=== PATIENT | male | born 2000 | race Caucasian/White ===

== ENCOUNTER 2021-10-20 04:01 | Inpatient (IN) ==
--- NOTE | 2021-10-20 04:30 | Emergency Department Note ---
Impression & Plan Suicidal overdose ADMIT ED Provider Note HPI: The patient is a 21-year-old male with history of anxiety/depression, presents the emergency department the chief complaint of suicidal ideations and attempted suicide. Patient was reportedly drinking alcohol earlier this evening which he does admit to, he states he took 5 to 6 separate 10 mg tablets of Lexapro. Patient reportedly did this at some point around 3 AM according to text messages from a friend. On arrival to the ED the patient admits to alcohol use today. He is cooperative however he tells me he does not want to speak about what happened today. He does tell me that he did take 5-6 Lexapro tablets and drank a large amount alcohol. States he was feeling very "upset". Patient states this was an attempt to kill himself. He is otherwise nonaggressive on arrival, he is alert, he is hemodynamically stable, smells of alcohol but otherwise in no acute distress. ROS: -General: Alcohol intoxication -Psychiatric: Suicidal ideations, suicide attempt via drug ingestion *10 point review systems was conducted and is otherwise negative unless stated above *Outpatient medications and allergy history reviewed PE: General: Alert, intoxicated HEENT: Normocephalic, atraumatic, trachea midline Eyes: Extraocular eye movement is intact, no scleral erythema Pulmonary: Clear to auscultation bilaterally, no wheezing Cardio: Regular rate and rhythm GI: Abdomen is soft, nontender : No suprapubic tenderness MSK: No evidence of trauma or malformation of the extremities, no edema Skin: No evidence of rash Neuro: Alert, no focal deficits Psychiatric: Not aggressive but minimally cooperative with history cloth desizing range tender: - An order was placed for continuous cardiac monitoring - Patient was noted to be in sinus rhythm with rate of 74 EKG: Rate: 71 Rhythm: Normal sinus rhythm Intervals: Within normal limits ST changes: No ST elevation Time: 0409 Medical Decision Making: Patient presents the emergency department under 302 by friends over concern for suicidal behavior. Patient does admit to drinking alcohol and taking Lexapro tablets earlier today in an attempt to kill himself. He states he was feeling very upset and anxious although he does not want to expand on this at this time. His alcohol level does return at 266, the remainder of his lab work is otherwise largely unremarkable. He will require repeat evaluation by case management when he is sober. Repeat alcohol level will be placed. I did discuss case with poison control, recommended continued observation on t elemetry, patient will be cleared from the standpoint of Lexapro after 8 hours from his initial ingestion which would place him for medical clearance around 11 AM. He will require reevaluation, suspect given his suicide attempt that 302 will require to be upheld. Patient was signed out to my colleague, Dr. Boateng, pending repeat evaluation by case management, anticipate admission under 302. * Diagnosis: Suicide attempt, alcohol intoxication, SSRI medication overdose * Disposition: Handoff Toy Urena DO Emergency Medicine Past Med/Surg History Medical History No significant past medical history Surgical History No significant past surgical history Social History Smoking Status: Unknown if ever smoked Preferred Language: Polish marital status: Single current occupational status: student Feels Safe at Home: Hesitant to Answer Allergies Allergies Allergy/AdvReac Type Severity Reaction Status Date / Time No Known Allergies Allergy Unverified 01/16/20 13:42 Results & Data (ED) Vital Signs Vital Signs - 24 hr 10/20/21 03:53 10/20/21 04:29 10/20/21 05:00 Temperature 36.8 C Temperature Source Oral Pulse Rate 68 Pulse Rate [Right Finger] 74 79 Pulse Rate from SpO2 Sensor Pulse Rhythm [Right Finger] Regular Pulse Strength [Right Finger] Normal Respiratory Rate 16 16 18 Respiratory Effort / Characteristics Non-Labored Spontaneous Non-Labored Spontaneous Non-Labored Spontaneous Respiratory Depth Normal Normal Normal Respiratory Pattern Regular Regular Blood Pressure 119/75 Blood Pressure [Right Arm] 119/75 115/64 Blood Pressure Mean 89 Blood Pressure Mean [Right Arm] 89 81 Blood Pressure Position Lying Pulse Oximetry 96 92 94 Oxygen Delivery Method Room Air Room Air Sepsis Recent Fever Within 48 Hours No Sepsis New/Unexplained Change in Mental Status No Sepsis Action Taken by Nursing No Action Required 10/20/21 05:16 10/20/21 05:20 10/20/21 05:30 Temperature Temperature Source Pulse Rate 76 75 79 Pulse Rate [Right Finger] Pulse Rate from SpO2 Sensor Pulse Rhythm [Right Finger] Pulse Strength [Right Finger] Respiratory Rate 15 15 15 Respiratory Effort / Characteristics Respiratory Depth Respiratory Pattern Blood Pressure 115/64 Blood Pressure [Right Arm] Blood Pressure Mean 81 Blood Pressure Mean [Right Arm] Blood Pressure Position Pulse Oximetry Oxygen Delivery Method Sepsis Recent Fever Within 48 Hours Sepsis New/Unexplained Change in Mental Status Sepsis Action Taken by Nursing 10/20/21 05:40 10/20/21 05:50 10/20/21 06:00 Temperature Temperature Source Pulse Rate 76 78 70 Pulse Rate [Right Finger] Pulse Rate from SpO2 Sensor Pulse Rhythm [Right Finger] Pulse Strength [Right Finger] Respiratory Rate 16 16 14 Respiratory Effort / Characteristics Respiratory Depth Respiratory Pattern Blood Pressure 107/55 L Blood Pressure [Right Arm] Blood Pressure Mean 72 Blood Pressure Mean [Right Arm] Blood Pressure Position Pulse Oximetry Oxygen Delivery Method Sepsis Recent Fever Within 48 Hours Sepsis New/Unexplained Change in Mental Status Sepsis Action Taken by Nursing 10/20/21 06:10 10/20/21 06:20 10/20/21 06:30 Temperature Temperature Source Pulse Rate 68 66 92 H Pulse Rate [Right Finger] Pulse Rate from SpO2 Sensor Pulse Rhythm [Right Finger] Pulse Strength [Right Finger] Respiratory Rate 14 16 15 Respiratory Effort / Characteristics Respiratory Depth Respiratory Pattern Blood Pressure 79/57 L Blood Pressure [Right Arm] Blood Pressure Mean 64 Blood Pressure Mean [Right Arm] Blood Pressure Position Pulse Oximetry Oxygen Delivery Method Sepsis Recent Fever Within 48 Hours Sepsis New/Unexplained Change in Mental Status Sepsis Action Taken by Nursing 10/20/21 06:40 Temperature Temperature Source Pulse Rate 71 Pulse Rate [Right Finger] Pulse Rate from SpO2 Sensor 71 Pulse Rhythm [Right Finger] Pulse Strength [Right Finger] Respiratory Rate 15 Respiratory Effort / Characteristics Respiratory Depth Respiratory Pattern Blood Pressure 112/70 Blood Pressure [Right Arm] Blood Pressure Mean 84 Blood Pressure Mean [Right Arm] Blood Pressure Position Pulse Oximetry 95 Oxygen Delivery Method Sepsis Recent Fever Within 48 Hours Sepsis New/Unexplained Change in Mental Status Sepsis Action Taken by Nursing Laboratory Data Result diagrams: 10/20/21 04:33 10/20/21 04:33 Lab Results 10/20/21 10/20/21 10/20/21 Range/Units 04:07 04:33 04:33 WBC 8.42 (4.8-10.8) K/uL RBC 4.98 (4.7-6.1) M/uL Hgb 15.9 (14.0-18.0) g/dL Hct 44.9 (42-52) % MCV 90.2 (80-100) fL MCH 31.9 (25-34) pg MCHC 35.4 (32-36) g/dL RDW Std Deviation 42.9 (36.4-46.3) fL RDW Coeff of Janna 13.0 (11.5-14.5) % Plt Count 256 (130-400) K/uL MPV 9.9 (7.4-10.4) fL Immature Gran % (Auto) 0.1 % Neut % (Auto) 64.1 % Lymph % (Auto) 27.3 % Beaver % (Auto) 5.9 % Eos % (Auto) 2.1 % Baso % (Auto) 0.5 % Neut # (Auto) 5.39 (1.4-6.5) K/uL Lymph # (Auto) 2.30 (1.2-3.4) K/uL Beaver # (Auto) 0.50 (0.11-0.59) K/uL Eos # (Auto) 0.18 (0-0.5) K/uL Baso # (Auto) 0.04 (0-0.2) K/uL Immature Gran # (Auto) 0.01 (0.00-0.02) K/uL Sodium 142 (136-145) mmol/L Potassium 3.5 (3.5-5.1) mmol/L Chloride 110 H (98-107) mmol/L Carbon Dioxide 28 (21-32) mmol/L Anion Gap 4.0 (3-11) BUN 14 (7-18) mg/dl Creatinine 1.12 (0.6-1.4) mg/dl Est Cr Clr Drug Dosing 101.2 ml/min Est GFR ( Amer) 109.0 ml/min Est GFR (Non-Af Amer) 94.1 ml/min BUN/Creatinine Ratio 12.6 (10-20) Glucose 87 (70-99) mg/dl Calcium 9.0 (8.5-10.1) mg/dl Total Bilirubin 0.5 (0.2-1) mg/dl AST 16 (15-37) U/L ALT 33 (12-78) Alkaline Phosphatase 73 (45-117) U/L Total Protein 7.5 (6.4-8.2) gm/dl Albumin 4.2 (3.4-5.0) gm/dl Globulin 3.3 (2.5-4.0) gm/dl Albumin/Globulin Ratio 1.3 (0.9-2) TSH 3.380 (0.300-4.500) uIu/ml Urine Color Urine Appearance (Clear) Urine pH (4.5-7.5) Ur Specific Montalba (1.000-1.030) Urine Protein (Negative) Urine Glucose (UA) (Negative) Urine Ketones (Negative) Urine Blood (Negative) Urine Nitrite (Negative) Urine Bilirubin (Negative) Urine Urobilinogen (Negative) Ur Leukocyte Esterase (Negative) Salicylates (2.8-20) mg/dl Urine Opiates Screen (Neg) Ur Methadone, Qual (Neg) Acetaminophen (10-30) ug/ml Urine Barbiturates (Neg) Ur Phencyclidine (PCP) (Neg) U Amphetamin/Meth Scrn (Neg) MDMA (Ecstasy) Screen (Neg) U Benzodiazepines Scrn (Neg) Ur Cocaine Metabolite (Neg) U Marijuana (THC) Screen (Neg) Ethyl Alcohol mg/dL (0-3) mg/dl SARS-CoV-2, RNA, NAAT NEGATIVE (NEGATIVE) 10/20/21 10/20/21 10/20/21 Range/Units 04:33 04:33 Unknown WBC (4.8-10.8) K/uL RBC (4.7-6.1) M/uL Hgb (14.0-18.0) g/dL Hct (42-52) % MCV (80-100) fL MCH (25-34) pg MCHC (32-36) g/dL RDW Std Deviation (36.4-46.3) fL RDW Coeff of Janna (11.5-14.5) % Plt Count (130-400) K/uL MPV (7.4-10.4) fL Immature Gran % (Auto) % Neut % (Auto) % Lymph % (Auto) % Beaver % (Auto) % Eos % (Auto) % Baso % (Auto) % Neut # (Auto) (1.4-6.5) K/uL Lymph # (Auto) (1.2-3.4) K/uL Beaver # (Auto) (0.11-0.59) K/uL Eos # (Auto) (0-0.5) K/uL Baso # (Auto) (0-0.2) K/uL Immature Gran # (Auto) (0.00-0.02) K/uL Sodium (136-145) mmol/L Potassium (3.5-5.1) mmol/L Chloride (98-107) mmol/L Carbon Dioxide (21-32) mmol/L Anion Gap (3-11) BUN (7-18) mg/dl Creatinine (0.6-1.4) mg/dl Est Cr Clr Drug Dosing ml/min Est GFR ( Amer) ml/min Est GFR (Non-Af Amer) ml/min BUN/Creatinine Ratio (10-20) Glucose (70-99) mg/dl Calcium (8.5-10.1) mg/dl Total Bilirubin (0.2-1) mg/dl AST (15-37) U/L ALT (12-78) Alkaline Phosphatase (45-117) U/L Total Protein (6.4-8.2) gm/dl Albumin (3.4-5.0) gm/dl Globulin (2.5-4.0) gm/dl Albumin/Globulin Ratio (0.9-2) TSH (0.300-4.500) uIu/ml Urine Color Yellow Urine Appearance Clear (Clear) Urine pH 6.0 (4.5-7.5) Ur Specific Montalba 1.004 (1.000-1.030) Urine Protein Negative (Negative) Urine Glucose (UA) Negative (Negative) Urine Ketones Negative (Negative) Urine Blood Negative (Negative) Urine Nitrite Negative (Negative) Urine Bilirubin Negative (Negative) Urine Urobilinogen Negative (Negative) Ur Leukocyte Esterase Negative (Negative) Salicylates < 1.7 L (2.8-20) mg/dl Urine Opiates Screen (Neg) Ur Methadone, Qual (Neg) Acetaminophen < 2 L (10-30) ug/ml Urine Barbiturates (Neg) Ur Phencyclidine (PCP) (Neg) U Amphetamin/Meth Scrn (Neg) MDMA (Ecstasy) Screen (Neg) U Benzodiazepines Scrn (Neg) Ur Cocaine Metabolite (Neg) U Marijuana (THC) Screen (Neg) Ethyl Alcohol mg/dL 266.0 H (0-3) mg/dl SARS-CoV-2, RNA, NAAT (NEGATIVE) 10/20/21 Range/Units Unknown WBC (4.8-10.8) K/uL RBC (4.7-6.1) M/uL Hgb (14.0-18.0) g/dL Hct (42-52) % MCV (80-100) fL MCH (25-34) pg MCHC (32-36) g/dL RDW Std Deviation (36.4-46.3) fL RDW Coeff of Janna (11.5-14.5) % Plt Count (130-400) K/uL MPV (7.4-10.4) fL Immature Gran % (Auto) % Neut % (Auto) % Lymph % (Auto) % Beaver % (Auto) % Eos % (Auto) % Baso % (Auto) % Neut # (Auto) (1.4-6.5) K/uL Lymph # (Auto) (1.2-3.4) K/uL Beaver # (Auto) (0.11-0.59) K/uL Eos # (Auto) (0-0.5) K/uL Baso # (Auto) (0-0.2) K/uL Immature Gran # (Auto) (0.00-0.02) K/uL Sodium (136-145) mmol/L Potassium (3.5-5.1) mmol/L Chloride (98-107) mmol/L Carbon Dioxide (21-32) mmol/L Anion Gap (3-11) BUN (7-18) mg/dl Creatinine (0.6-1.4) mg/dl Est Cr Clr Drug Dosing ml/min Est GFR ( Amer) ml/min Est GFR (Non-Af Amer) ml/min BUN/Creatinine Ratio (10-20) Glucose (70-99) mg/dl Calcium (8.5-10.1) mg/dl Total Bilirubin (0.2-1) mg/dl AST (15-37) U/L ALT (12-78) Alkaline Phosphatase (45-117) U/L Total Protein (6.4-8.2) gm/dl Albumin (3.4-5.0) gm/dl Globulin (2.5-4.0) gm/dl Albumin/Globulin Ratio (0.9-2) TSH (0.300-4.500) uIu/ml Urine Color Urine Appearance (Clear) Urine pH (4.5-7.5) Ur Specific Mont[place] (1.000-1.030) Urine Protein (Negative) Urine Glucose (UA) (Negative) Urine Ketones (Negative) Urine Blood (Negative) Urine Nitrite (Negative) Urine Bilirubin (Negative) Urine Urobilinogen (Negative) Ur Leukocyte Esterase (Negative) Salicylates (2.8-20) mg/dl Urine Opiates Screen Neg (Neg) Ur Methadone, Qual Neg (Neg) Acetaminophen (10-30) ug/ml Urine Barbiturates Neg (Neg) Ur Phencyclidine (PCP) Neg (Neg) U Amphetamin/Meth Scrn Neg (Neg) MDMA (Ecstasy) Screen Neg (Neg) U Benzodiazepines Scrn Neg (Neg) Ur Cocaine Metabolite Neg (Neg) U Marijuana (THC) Screen Neg (Neg) Ethyl Alcohol mg/dL (0-3) mg/dl SARS-CoV-2, RNA, NAAT (NEGATIVE) Discharge Plan Visit Data Chief Complaint: Mental Health Evaluation Stated Complaint: MENTAL HEALTH ED Provider: Toy Urena Discharge Problem: Suicidal overdose Forms Stand Alone Forms: [facility], Suicide Prevention Resources Referrals Referrals: [facility] [Primary Care Provider] - Discharge Problem: Suicidal overdose Qualifiers: Encounter type: initial encounter Qualified Code(s): T50.902A - Poisoning by un specified drugs, medicaments and biological substances, intentional self-harm, initial encounter
[2021-10-20 04:45] LABS: Appearance Urine Clear (Clear); Bilirubin Urine Negative (Negative); Blood Urine Negative (Negative); Color Urine Yellow; Glucose Urine UA Negative (Negative); Ketones Urine Negative (Negative); Leukocyte Esterase Urine Negative (Negative); Nitrite Urine Negative (Negative); Protein Urine Negative (Negative); Specific Gravity Urine 1.004 (1.000-1.030); Urobilinogen Urine Negative (Negative)
[2021-10-20 04:52] LABS: Basophils # (auto) 0.04 K/uL (0-0.2); Basophils % (auto) 0.5 %; Eosinophils # (auto) 0.18 K/uL (0-0.5); Eosinophils % (auto) 2.1 %; Hematocrit (blood only) 44.9 % (42-52); Hemoglobin 15.9 g/dL (14.0-18.0); Immature Granulocytes # (auto) 0.01 K/uL (0.00-0.02); Immature Granulocytes % (auto) 0.1 %; Lymphocytes % (auto) 27.3 %; Mean Corpuscular Hemoglobin 31.9 pg (25-34); Mean Corpuscular Hgb Conc 35.4 g/dL (32-36); Mean Corpuscular Volume 90.2 fL (80-100); Mean Platelet Volume 9.9 fL (7.4-10.4); Monocytes % (auto) 5.9 %; Neutrophils # (auto) 5.39 K/uL (1.4-6.5); Neutrophils % (auto) 64.1 %; Platelet Count 256 K/uL (130-400); RDW Standard Deviation 42.9 fL (36.4-46.3); Red Blood Count 4.98 M/uL (4.7-6.1); White Blood Count 8.42 K/uL (4.8-10.8)
[2021-10-20 05:11] LABS: Albumin Level 4.2 gm/dl (3.4-5.0); BUN Creatinine Ratio 12.6 (10-20); Creatinine Clr Calc Pharmacy 101.2 ml/min; Est GFR (Non-African American) 94.1 ml/min; Potassium 3.5 mmol/L (3.5-5.1)
[2021-10-20 05:13] LABS: Amphetamines+Metham, Urine Neg (Neg); Barbiturates, Urine Neg (Neg); Benzodiazepine, Urine Neg (Neg); Cocaine, Urine Neg (Neg); MDMA (Ecstacy), Urine Neg (Neg); Methadone, Urine Neg (Neg); Opiate, Urine Neg (Neg); Phencyclidine, Urine Neg (Neg)
[2021-10-20 05:21] LABS: Albumin Globulin Ratio 1.3 (0.9-2); Bilirubin,Total 0.5 mg/dl (0.2-1); Globulin 3.3 gm/dl (2.5-4.0); Thyroid Stimulating Hormone 3.38 uIu/ml (0.300-4.500); Total Protein 7.5 gm/dl (6.4-8.2)
[2021-10-20 05:31] LABS: Acetaminophen < 2 ug/ml (10-30); Salicylate < 1.7 mg/dl (2.8-20)
--- NOTE | 2021-10-20 08:27 | Emergency Department Note ---
ED Visit Note I assumed care at the change of shift. The patient had threatened suicide and had apparently taken some pills in overdose. He also has been drinking alcohol. Psychiatric case management was going to do an assessment once his alcohol level was felt to be under 100. The patient's alcohol cleared and he was more interactive and appeared clinical ly sober. He was seen by psychiatry case management. Patient admitted to taking pills in an attempt to harm himself. Patient is going to require a hospital stay. Psychiatric case management is cur rently working on bed placement. Case is being assumed by Dr. Wilson at the change of shift. . : Suicidal overdose Qualifiers: Encounter type: initial encounter Qualified Code(s): T50.902A - Poisoning by unspecified drugs, medicaments and biological substances, intentional self-harm, initial encounter
--- NOTE | 2021-10-20 12:24 | Electrocardiogram Report ---
Test Reason : Blood Pressure : / mmHG Vent. Rate : 071 BPM Atrial Rate : 071 BPM P-R Int : 154 ms QRS Dur : 098 ms QT Int : 374 ms P-R-T Axes : 044 060 057 degrees QTc Int : 406 ms Normal sinus rhythm Incomplete right bundle branch block Borderline ECG No previous ECGs available Confirmed by Tevin Lee ([id number]) on 10/20/2021 12:23:39 PM Referred By: REFERRED SELF Confirmed By:Tevin Lee
--- NOTE | 2021-10-20 15:43 | Emergency Department Note ---
ED Visit Note 1542: Signout from Dr. Boateng. 21-year-old male intoxicated making suicidal remarks. 302 signed. Awaiting psychiatric placement. Medically cleared. 1743: Patient accepted to 3 S. . : Suicidal overdose Qualifiers: Encounter type: initial encounter Qualified Code(s): T50.902A - Poisoning by unspecified drugs, medicaments and biological substances, intentional self-harm, initial encounter
[2021-10-20] MEDS ORDERED: ACETAMINOPHEN 325 MG TAB PO PRN (17:33)
[2021-10-20] MEDS ORDERED: BISMUTH SUBSALICYLATE LIQD 236 ML PO PRN (17:33)
[2021-10-20] MEDS ORDERED: SODIUM CHLORIDE 0.65% NA SOLN 45 ML (OCEAN) PRN (17:33)
[2021-10-20] MEDS ORDERED: MAGNESIUM HYDROXIDE SUSP 30 ML UDC PO PRN (17:33)
[2021-10-20] MEDS ORDERED: hydrOXYzine HCl 25 MG TAB PO PRN (17:33)
[2021-10-20] MEDS ORDERED: ALUMINUM/MAGNESIUM SUSP 30 ML UDC PO PRN (17:33)
[2021-10-20] MEDS: hydrOXYzine HCl 25 MG TAB PO PRN (22:32)
--- NOTE | 2021-10-21 09:26 | History & Physical ---
Date of Service October 21, 2021 Impression / Recommendations Impression 21 yo male with worsening of baseline anxiety during COVID and family stressors notes worsening depression this semester culminating in an OD attempt while intoxicated. He states it was unplanned and regrets his actions, mainly due to upset to family and embarrassment. (1) Major depressive disorder with single episode: (2) Generalized anxiety disorder: The patient was admitted to the [facility] ([facility] mental [facility] unit) on q15 min checks (behavioral with suicide precautions) for safety. The patient will participate in group, recreational, and milieu therapies and will be offered additional individual and family sessions as clinically appropriate. Will review restart of SSRI or additional options in the am. Holding meds today due to recent OD and need to adjust to unit milieu. Risk Factors Assessment Do You Have Access To A Gun?: No Protective Factors Assessment Employed: No Psychiatric History Identifying Data ERNESTO HANSEN is a 21-year-old , [employer] from [place], has some history of depression/anxiety, and was admitted on 10/20/21 17:33 on a 201 voluntary commitment for a suicide attempt. 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 The patient admitted to taking 6-7 Lexapro as an attempt to harm himself while intoxicated. ISABELL 236 but continued to express SI when sober. He noted stressors of parents divorce and a break up with a girlfriend on top of stressors related to COVID. He feels Lexapro has generally been a helpful medication for his generalized anxiety, "it takes the edge off" but that this semester has been tough. He states overall he is doing OK in classes but upper level coursework is more challenging and that his energy and motivation had not been as good in the am. He feels like it's harder for him to get up since starting Zoloft. He denies a specific triggering event on the night of the OD but states that he had been having thoughts on and off "for while". He regrets the OD, states he is looking forward to finishing his classes and going home for break. He does worry that telling his parents could cause his mom to have an Etoh relapse. She was in rehab 7-8 months ago. Past Psychiatric History Previous Psych History: med management with a PA at home. Current Psychiatric Diagnosis: Depression Outpatient Services: no therapist Previous Psych Admissions: none Do You Have Access To A Gun?: No History of Previous Suicide Attempt: No Past Medication Trials: denied buspirone Allergies Allergy/AdvReac Type Severity Reaction Status Date / Time No Known Allergies Allergy Unverified 01/16/20 13:42 Home Medications Medication Instructions Recorded Confirmed Type escitalopram oxalate 10 mg tablet 10 mg PO DAILY 10/21/21 10/21/21 History finasteride 1 mg tablet 1 mg PO DAILY 10/21/21 10/21/21 History Family History Family History of: Alcoholism/Drug Abuse (mother) and Doesn't Know Alcohol History Hx of Alcohol Use Over the Past 12 Months: Yes (2-3 times per week) AUDIT Total Score: 4 Smoking Use Have You Smoked or Used Tobacco Products in the Last 30 Days: No Smoking Status: Never smoker Substance History Hx of Prescription Med Misuse Over the Past 12 Months: No Hx of Over the Counter Med Misuse Over the Past 12 Months: No Hx of Inhalent Misuse Over the Past 12 Months: No Hx of Organic Substance Use Over the Past 12 Months: Yes (marijuana occasionally) Hx of Illegal Substances/Street Drug Use Over Past 12 Months: No Problems as a Result of Past Substance Use: None Identified Personal History Living Arrangements: fraternity Highest Grade Completed: Some College (omid in Real Estate Risk Management) 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) Marital Status: Single Number Of Children: 0 Beliefs That Will Affect Care: None Current Legal Problems: No Hx Traumatic Life Events: No Patient History Medical History No significant past medical history Surgical History No significant past surgical history Social History Smoking Status: Never smoker Preferred Language: Welsh Communication Ability: Effective 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 Beliefs That Will Affect Care: None marital status: Single current occupational status: student Feels Safe at Home: Hesitant to Answer Assistive Devices: None Review of Systems Review of Systems: All systems reviewed & are unremarkable except as noted in HPI & below Physical Exam Psychiatric: Orientation: alert and oriented x 3 Apperance: appropriately dressed and appropriately groomed Eye Contact: good eye contact Motor Behavior: no abnormal motor movements Speech: normal rate/rhythm/volume of speech Affect: + depressed affect Mood: + depressed mood Thought Process: goal directed thought process Thought Content: reality based without delusions Suicidal Thoughts: denies suicidal plan and denies suicidal intent; + reports suicidal thoughts (passive) Homicidal Thoughts: denies homicidal thoughts Hallucinations: no auditory hallucinations and no visual hallucinations Cognition: attention grossly intact and language grossly intact Estimated Intelligence: consistent with education level Insight: + limited insight Judgement: + limited judgement Vital Signs (Past 24 Hours): Last Vital Signs Temp 36.6 C 10/21/21 06:37 Pulse 53 L 10/21/21 06:38 Resp 16 10/21/21 06:37 BP 120/79 10/21/21 06:38 Pulse Ox 97 10/20/21 13:00 Exam Statement: A physical exam was performed in the ED by Dr. Urena for the purposes of medical clearance. I accept that physical as correct and adequate for the purposes of the inpatient physical exam. Results & Data ([facility]) Laboratory Results Laboratory Results - last 24 hr 10/20/21 10:48 Ethyl Alcohol mg/dL 122.0 H labs were reviewed including CBC with dif, BUN/Cr, lytes, LFTs, UA, TSH and were within normal limits. UDS was negative. Initial EToh level 266, COVID neg. Current Inpatient Medications Current Inpatient Medications: Current Inpatient Medications Acetaminophen (Acetaminophen 325 Mg Tab) 650 mg PO Q4H PRN PRN Reason: Headache or Minor Fever Stop: 11/19/21 17:32 Al Hydrox/Mg Hydrox/Simethicone (Aluminum/Magnesium Susp 30 Ml Udc) 30 ml PO Q4H PRN PRN Reason: GI Upset Stop: 11/19/21 17:32 Bismuth Subsalicylate (Bismuth Subsalicylate Liqd 236 Ml) 15 ml PO PRN PRN PRN Reason: Loose Stool Stop: 11/19/21 17:32 Hydroxyzine HCl (Hydroxyzine Hcl 25 Mg Tab) 50 mg PO HSZ PRN PRN Reason: Insomnia Stop: 11/19/21 17:32 Last Admin: 10/20/21 22:32 Dose: 50 mg Documented by: Hydroxyzine HCl (Hydroxyzine Hcl 25 Mg Tab) 25 mg PO Q4H PRN PRN Reason: Anxiety Stop: 11/19/21 17:32 Magnesium Hydroxide (Magnesium Hydroxide Susp 30 Ml Udc) 30 ml PO DAILY PRN PRN Reason: Constipation Stop: 11/19/21 17:32 Sodium Chloride (Sodium Chloride 0.65% Na Soln 45 Ml (Waller)) 1 - 2 sprays NA PRN PRN PRN Reason: Nasal Dryness/Congestion Stop: 11/19/21 17:32
--- NOTE | 2021-10-22 11:43 | Psychiatric Progress Note ---
Date of Service October 22, 2021 Impression / Recommendations Impression 21 yo male with worsening of baseline anxiety during COVID and family stressors notes worsening depression this semester culminating in an OD attempt while intoxicated. He states it was unplanned and regrets his actions, mainly due to upset to family and embarrassment. 10/22/21: improving, continues to require inpatient hospitalization for safety and monitoring. (1) Major depressive disorder with single episode: (2) Generalized anxiety disorder: 10/22/21: Risks/benefits/alternatives reviewed re: antidepressants for the treatment of depression and/or anxiety. Discussion included but was not limited to FDA warnings re: suicidality in adolescents and young adults. The patient agreed to a trial of Prozac 10 mg daily starting today. 10/21/21: The patient was admitted to the [facility] ([facility] mental health unit) on q15 min checks (behavioral with suicide precautions) for safety. The patient will participate in group, recreational, and milieu therapies and will be offered additional individual and family sessions as clinically appropriate. Will review restart of SSRI or additional options in the am. Holding meds today due to recent OD and need to adjust to unit milieu. Inventory Assets Strengths: intelligent, family oriented Needs: outpatient therapist, family session Risk Factors Assessment Male: Yes : Yes Do You Have Access To A Gun?: No Mental Health Diagnoses: Yes Previous Attempt: No Previous Psychiatric Hospitalization: No Protective Factors Assessment Employed: Yes Stable Relationships: Yes Interval History Identifying Information ERNESTO HANSEN is a 21-year-old , U [employer] from [place], has some history of depression/anxiety, and was admitted on 10/20/21 17:33 on a 201 voluntary commitment for a suicide attempt. Chief Complaint "yeah, I'm focussed on my classes, still nervous to talk to my mom". Review of Systems Sleep Information Total Hours of Sleep: 5.5 Meal Information Percent Meal Consumed - Breakfast: 100 Percent Meal Consumed - Lunch: 75 Percent Meal Consumed - Dinner: 100 Subjective Subjective Patient was seen & assessed and interval progress reviewed with treatment team. No issues overnight. Reports suicidal thoughts have decreased. He is appropriately anxious about family reaction, discussed his parent's mental health issues in more detail with staff. He is interested in a trial of medication, would restart Lexapro has perceived as helpful but states that he did feel tired in the am since starting it. He is unsure to what degree that is med vs depression related. He would like to return to classes on 10/24. Physical Exam Psychiatric Orientation: alert and oriented x 3 Apperance: appropriately dressed and appropriately groomed Eye Contact: good eye contact Motor Behavior: no abnormal motor movements Speech: normal rate/rhythm/volume of speech Affect: + depressed affect Mood: + depressed mood Thought Process: goal directed thought process Thought Content: reality based without delusions Suicidal Thoughts: denies suicidal thoughts, denies suicidal plan and denies suicidal intent Homicidal Thoughts: denies homicidal thoughts Hallucinations: no auditory hallucinations and no visual hallucinations Cognition: attention grossly intact and language grossly intact Estimated Intelligence: consistent with education level Insight: + fair insight Judgement: + limited judgement Vital Signs (Past 24 Hours) Last Vital Signs Temp 36.6 C 10/22/21 06:35 Pulse 61 10/22/21 06:35 Resp 16 10/22/21 06:35 BP 118/79 10/22/21 06:35 Pulse Ox 97 10/20/21 13:00 Results & Data ([facility]) Current Inpatient Medications Current Inpatient Medications: Current Inpatient Medications Acetaminophen (Acetaminophen 325 Mg Tab) 650 mg PO Q4H PRN PRN Reason: Headache or Minor Fever Stop: 11/19/21 17:32 Al Hydrox/Mg Hydrox/Simethicone (Aluminum/Magnesium Susp 30 Ml Udc) 30 ml PO Q4H PRN PRN Reason: GI Upset Stop: 11/19/21 17:32 Bismuth Subsalicylate (Bismuth Subsalicylate Liqd 236 Ml) 15 ml PO PRN PRN PRN Reason: Loose Stool Stop: 11/19/21 17:32 Fluoxetine HCl (Fluoxetine Hcl 10 Mg Cap) 10 mg PO QAM KEMAL Stop: 11/21/21 10:59 Hydroxyzine HCl (Hydroxyzine Hcl 25 Mg Tab) 50 mg PO HSZ PRN PRN Reason: Insomnia Stop: 11/19/21 17:32 Last Admin: 10/20/21 22:32 Dose: 50 mg Documented by: Hydroxyzine HCl (Hydroxyzine Hcl 25 Mg Tab) 25 mg PO Q4H PRN PRN Reason: Anxiety Stop: 11/19/21 17:32 Magnesium Hydroxide (Magnesium Hydroxide Susp 30 Ml Udc) 30 ml PO DAILY PRN PRN Reason: Constipation Stop: 11/19/21 17:32 Sodium Chloride (Sodium Chloride 0.65% Na Soln 45 Ml (Wilson)) 1 - 2 sprays NA PRN PRN PRN Reason: Nasal Dryness/Congestion Stop: 11/19/21 17:32 Mental Health & Subst Abuse Tx Psychiatrist Name of Psychiatrist: [employer] [facility]- Geronimo Edgar Psychiatrist's Psychiatric Appointment Comment: [address], [address], [place], [place] Therapist Name of Therapist: none Assistant Hall Director Name of Assistant Hall Director: None Post Discharge Appointments Primary Care Physician Name Of Family Doctor: [facility] Primary Care Provider Appointment Comment: [facility] Contact Information Discharge Phone Number: [phone] Discharge Address: [address] [facility] [place] [address]
[2021-10-22] MEDS: FLUoxetine HCL 10 MG CAP PO SCH (11:59)
[2021-10-22] MEDS: hydrOXYzine HCl 25 MG TAB PO PRN (21:04)
--- NOTE | 2021-10-23 10:26 | Psychiatric Progress Note ---
Date of Service October 23, 2021 Impression / Recommendations Impression 21 yo male with worsening of baseline anxiety during COVID and family stressors notes worsening depression this semester culminating in an OD attempt while intoxicated. He states it was unplanned and regrets his actions, mainly due to upset to family and embarrassment. 10/23/21: improving, continue monitoring med response and arranging aftercare. (1) Major depressive disorder with single episode: (2) Generalized anxiety disorder: 10/23/21: continue current med and treatment plan. Keeping dose at 10 mg Prozac given hx of side effects and suicide attempt on relatively low dose Lexapro. 10/22/21: Risks/benefits/alternatives reviewed re: antidepressants for the treatment of depression and/or anxiety. Discussion included but was not limited to FDA warnings re: suicidality in adolescents and young adults. The patient agreed to a trial of Prozac 10 mg daily starting today. 10/21/21: The patient was admitted to the [facility] ([facility] mental health unit) on q15 min checks (behavioral with suicide precautions) for safety. The patient will participate in group, recreational, and milieu therapies and will be offered additional individual and family sessions as clinically appropriate. Will review restart of SSRI or additional options in the am. Holding meds today due to recent OD and need to adjust to unit milieu. Inventory Assets Strengths: intelligent, family oriented Needs: outpatient therapist, family session Risk Factors Assessment Male: Yes : Yes Do You Have Access To A Gun?: No Mental Health Diagnoses: Yes Previous Attempt: No Previous Psychiatric Hospitalization: No Protective Factors Assessment Employed: Yes Stable Relationships: Yes Interval History Identifying Information ERNESTO HANSEN is a 21-year-old , [employer] [place] from [place], has some history of depression/anxiety, and was admitted on 10/20/21 17:33 on a 201 voluntary commitment for a suicide attempt. Chief Complaint "It was a relief to tell my mom". Review of Systems Sleep Information Total Hours of Sleep: 6 Sleep Comments: asleep at 00:15 Meal Information Percent Meal Consumed - Breakfast: 100 Percent Meal Consumed - Lunch: 90 Percent Meal Consumed - Dinner: 90 Subjective Subjective Patient was seen & assessed and interval progress reviewed with nursing and social work. He is tolerating medication. Notes improvement in mood and is future focussed with regards to return to classes soon. His family meeting with mother went well and he plans to speak with his father later as he wants to be more open about his symptoms. Physical Exam Psychiatric Orientation: alert and oriented x 3 Apperance: appropriately dressed and appropriately groomed Eye Contact: good eye contact Motor Behavior: no abnormal motor movements Speech: normal rate/rhythm/volume of speech Affect: euthymic affect Mood: + depressed mood Thought Process: goal directed thought process Thought Content: reality based without delusions Suicidal Thoughts: denies suicidal thoughts, denies suicidal plan and denies suicidal intent Homicidal Thoughts: denies homicidal thoughts Hallucinations: no auditory hallucinations and no visual hallucinations Cognition: attention grossly intact and language grossly intact Estimated Intelligence: consistent with education level Insight: + fair insight Judgement: + limited judgement Vital Signs (Past 24 Hours) Last Vital Signs Temp 36.5 C 10/23/21 06:31 Pulse 54 L 10/23/21 06:32 Resp 16 10/23/21 06:31 BP 112/74 10/23/21 06:32 Pulse Ox 97 10/20/21 13:00 Results & Data ([facility]) Current Inpatient Medications Current Inpatient Medications: Current Inpatient Medications Acetaminophen (Acetaminophen 325 Mg Tab) 650 mg PO Q4H PRN PRN Reason: Headache or Minor Fever Stop: 11/19/21 17:32 Al Hydrox/Mg Hydrox/Simethicone (Aluminum/Magnesium Susp 30 Ml Udc) 30 ml PO Q4H PRN PRN Reason: GI Upset Stop: 11/19/21 17:32 Bismuth Subsalicylate (Bismuth Subsalicylate Liqd 236 Ml) 15 ml PO PRN PRN PRN Reason: Loose Stool Stop: 11/19/21 17:32 Fluoxetine HCl (Fluoxetine Hcl 10 Mg Cap) 10 mg PO QAM KEMAL Stop: 11/21/21 10:59 Last Admin: 10/22/21 11:59 Dose: 10 mg Documented by: Hydroxyzine HCl (Hydroxyzine Hcl 25 Mg Tab) 50 mg PO HSZ PRN PRN Reason: Insomnia Stop: 11/19/21 17:32 Last Admin: 10/22/21 21:04 Dose: 50 mg Documented by: Hydroxyzine HCl (Hydroxyzine Hcl 25 Mg Tab) 25 mg PO Q4H PRN PRN Reason: Anxiety Stop: 11/19/21 17:32 Magnesium Hydroxide (Magnesium Hydroxide Susp 30 Ml Udc) 30 ml PO DAILY PRN PRN Reason: Constipation Stop: 11/19/21 17:32 Sodium Chloride (Sodium Chloride 0.65% Na Soln 45 Ml (Garrett)) 1 - 2 sprays NA PRN PRN PRN Reason: Nasal Dryness/Congestion Stop: 11/19/21 17:32 Mental Health & Subst Abuse Tx Psychiatrist [facility] [employer] [facility] [facility]- Geronimo Hernández Psychiatrist's Psychiatric Appointment Comment: [address], [address], [place], [place] Therapist Name of Therapist: none Broadcast Field Supervisor Name of Broadcast Field Supervisor: None Post Discharge Appointments Primary Care Physician Name Of Family Doctor: [facility] Primary Care Provider Appointment Comment: [facility] Contact Information Discharge Phone Number: [phone] Discharge [address]: [address] [place] [address]. [place] [address]
[2021-10-23] MEDS: FLUoxetine HCL 10 MG CAP PO SCH (10:32)
[2021-10-23] MEDS: hydrOXYzine HCl 25 MG TAB PO PRN (23:12)
[2021-10-24] MEDS: FLUoxetine HCL 10 MG CAP PO SCH (09:30)
--- NOTE | 2021-10-24 09:59 | Discharge Summary ---
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 The patient admitted to taking 6-7 Lexapro as an attempt to harm himself while intoxicated. ISABELL 236 but continued to express SI when sober. He noted stressors of parents divorce and a break up with a girlfriend on top of stressors related to COVID. He feels Lexapro has generally been a helpful medication for his generalized anxiety, "it takes the edge off" but that this semester has been tough. He states overall he is doing OK in classes but upper level coursework is more challenging and that his energy and motivation had not been as good in the am. He feels like it's harder for him to get up since starting Zoloft. He denies a specific triggering event on the night of the OD but states that he had been having thoughts on and off "for while". He regrets the OD, states he is looking forward to finishing his classes and going home for break. He does worry that telling his parents could cause his mom to have an Etoh relapse. She was in rehab 7-8 months ago. Physical Exam Psychiatric See admission H&P and DOD summary. Vital Signs (Past 24 Hours) Last Vital Signs Temp 36.5 C 10/24/21 06:37 Pulse 58 L 10/24/21 06:38 Resp 16 10/24/21 06:37 BP 105/69 10/24/21 06:38 Pulse Ox 97 10/20/21 13:00 Principal Diagnosis Major depressive disorder Psychiatric Data See daily stay summary. In short, safety was maintained and the patient was cooperative with care. Medication changes included d/c Lexapro in favor of a trial of Prozac given OD on Lexapro and concerns about possible sedation and they tolerated this well. A family session was held and safety plan was completed prior to discharge. Day of Discharge Assessment Today the patient voices readiness for discharge. They note improvement in mood and deny thoughts to harm self or others. Thoughts remain organized and they are improved from admission. There is no evidence of psychosis. They agree to take mediations as prescribed and keep follow-up appointments. They are stable for discharge to outpatient level of care. Advance Directives Advance Directives Information Provided: Yes Advance Directives: No Mental Health Advance Directive: No Advance Directives on File: No Living Will: No Power of Target Aircraft Controller: No Advance Directives Reason:: Declines as Mental Health Visit. Risk Factors Assessment Male: Yes : Yes Do You Have Access To A Gun?: No Mental Health Diagnoses: Yes Previous Attempt: No Previous Psychiatric Hospitalization: No Protective Factors Assessment Employed: Yes Stable Relationships: Yes Tobacco Cessation at Discharge Tobacco Cessation Medication Prescribed at Discharge: Not Applicable/Non-Smoker Total Time Total Time Spent: Greater Than 30 Minutes Total Time Includes: Examination of the patient, Discharge Planning and Medication Reconciliation Discharge Data Lab Results 10/20/21 10/20/21 10/20/21 04:07 04:33 04:33 WBC 8.42 RBC 4.98 Hgb 15.9 Hct 44.9 MCV 90.2 MCH 31.9 MCHC 35.4 RDW Std Deviation 42.9 RDW Coeff of Janna 13.0 Plt Count 256 MPV 9.9 Immature Gran % (Auto) 0.1 Neut % (Auto) 64.1 Lymph % (Auto) 27.3 [place] % (Auto) 5.9 Eos % (Auto) 2.1 Baso % (Auto) 0.5 Neut # (Auto) 5.39 Lymph # (Auto) 2.30 [place] # (Auto) 0.50 Eos # (Auto) 0.18 Baso # (Auto) 0.04 Immature Gran # (Auto) 0.01 Sodium 142 Potassium 3.5 Chloride 110 H Carbon Dioxide 28 Anion Gap 4.0 BUN 14 Creatinine 1.12 Est Cr Clr Drug Dosing 101.2 Est GFR ( Amer) 109.0 Est GFR (Non-Af Amer) 94.1 BUN/Creatinine Ratio 12.6 Glucose 87 Calcium 9.0 Total Bilirubin 0.5 AST 16 ALT 33 Alkaline Phosphatase 73 Total Protein 7.5 Albumin 4.2 Globulin 3.3 Albumin/Globulin Ratio 1.3 TSH 3.380 Urine Color Urine Appearance Urine pH Ur Specific [place] Urine Protein Urine Glucose (UA) Urine Ketones Urine Blood Urine Nitrite Urine Bilirubin Urine Urobilinogen Ur Leukocyte Esterase Salicylates Urine Opiates Screen Ur Methadone, Qual Acetaminophen Urine Barbiturates Ur Phencyclidine (PCP) U Amphetamin/Meth Scrn MDMA (Ecstasy) Screen U Benzodiazepines Scrn Ur Cocaine Metabolite U Marijuana (THC) Screen Ethyl Alcohol mg/dL SARS-CoV-2, RNA, NAAT NEGATIVE 10/20/21 10/20/21 10/20/21 04:33 04:33 10:48 WBC RBC Hgb Hct MCV MCH MCHC RDW Std Deviation RDW Coeff of Janna Plt Count MPV Immature Gran % (Auto) Neut % (Auto) Lymph % (Auto) [place] % (Auto) Eos % (Auto) Baso % (Auto) Neut # (Auto) Lymph # (Auto) [place] # (Auto) Eos # (Auto) Baso # (Auto) Immature Gran # (Auto) Sodium Potassium Chloride Carbon Dioxide Anion Gap BUN Creatinine Est Cr Clr Drug Dosing Est GFR ( Amer) Est GFR (Non-Af Amer) BUN/Creatinine Ratio Glucose Calcium Total Bilirubin AST ALT Alkaline Phosphatase Total Protein Albumin Globulin Albumin/Globulin Ratio TSH Urine Color Urine Appearance Urine pH Ur Specific [place] Urine Protein Urine Glucose (UA) Urine Ketones Urine Blood Urine Nitrite Urine Bilirubin Urine Urobilinogen Ur Leukocyte Esterase Salicylates < 1.7 L Urine Opiates Screen Ur Methadone, Qual Acetaminophen < 2 L Urine Barbiturates Ur Phencyclidine (PCP) U Amphetamin/Meth Scrn MDMA (Ecstasy) Screen U Benzodiazepines Scrn Ur Cocaine Metabolite U Marijuana (THC) Screen Ethyl Alcohol mg/dL 266.0 H 122.0 H SARS-CoV-2, RNA, NAAT 10/20/21 10/20/21 Unknown Unknown WBC RBC Hgb Hct MCV MCH MCHC RDW Std Deviation RDW Coeff of Janna Plt Count MPV Immature Gran % (Auto) Neut % (Auto) Lymph % (Auto) [place] % (Auto) Eos % (Auto) Baso % (Auto) Neut # (Auto) Lymph # (Auto) [place] # (Auto) Eos # (Auto) Baso # (Auto) Immature Gran # (Auto) Sodium Potassium Chloride Carbon Dioxide Anion Gap BUN Creatinine Est Cr Clr Drug Dosing Est GFR ( Amer) Est GFR (Non-Af Amer) BUN/Creatinine Ratio Glucose Calcium Total Bilirubin AST ALT Alkaline Phosphatase Total Protein Albumin Globulin Albumin/Globulin Ratio TSH Urine Color Yellow Urine Appearance Clear Urine pH 6.0 Ur Specific [place] 1.004 Urine Protein Negative Urine Glucose (UA) Negative Urine Ketones Negative Urine Blood Negative Urine Nitrite Negative Urine Bilirubin Negative Urine Urobilinogen Negative Ur Leukocyte Esterase Negative Salicylates Urine Opiates Screen Neg Ur Methadone, Qual Neg Acetaminophen Urine Barbiturates Neg Ur Phencyclidine (PCP) Neg U Amphetamin/Meth Scrn Neg MDMA (Ecstasy) Screen Neg U Benzodiazepines Scrn Neg Ur Cocaine Metabolite Neg U Marijuana (THC) Screen Neg Ethyl Alcohol mg/dL SARS-CoV-2, RNA, NAAT Hospital Course (1) Major depressive disorder with single episode: (2) Generalized anxiety disorder: 10/23/21: continue current med and treatment plan. Keeping dose at 10 mg Prozac given hx of side effects and suicide attempt on relatively low dose Lexapro. 10/22/21: Risks/benefits/alternatives reviewed re: antidepressants for the treatment of depression and/or anxiety. Discussion included but was not limited to FDA warnings re: suicidality in adolescents and young adults. The patient agreed to a trial of Prozac 10 mg daily starting today. 10/21/21: The patient was admitted to the [facility] ([facility]) on q15 min checks (behavioral with suicide precautions) for safety. The patient will participate in group, recreational, and milieu therapies and will be offered additional individual and family sessions as clinically appropriate. Will review restart of SSRI or additional options in the am. Holding meds today due to recent OD and need to adjust to unit milieu. Mental Health & Subst Abuse Tx Psychiatrist Name of Psychiatrist: [place] [employer] [facility] - Geronimo Hernandez Psychiatrist's Date of Appointment with Psychiatrist: 11/06/21 Time of Appointment with Psychiatrist: 13:30 Psychiatric Appointment Comment: [address], [address], [place], [place] Psychiatrist Release of Information: Obtained, Reviewed and Signed Therapist Name of Therapist: Please see options below Screen Handler Name of Screen Handler: None Post Discharge Appointments Primary Care Physician Name Of Family Doctor: [facility] Primary Care Provider Appointment Comment: [facility] [place] [place] Smoking Cessation Counseling Tobacco Cessation Medication Prescribed at Discharge: Not Applicable/Non-Smoker Other #2: Name of Aftercare Appointment: [facility] Phone Number of Aftercare Appointment: [phone] Date of Aftercare Appointment: 10/26/21 Time of Aftercare Appointment: 10:30 a.m. Aftercare Appointment Comment: Check email for link #1: Name of Aftercare Appointment: Potential Therapist: Tyler Del Rio Phone Number of Aftercare Appointment: [phone] Time of Aftercare Appointment: A message was left to begin the referral, please follow up Aftercare Appointment Comment: Recommended through [facility] #3: Name of Aftercare Appointment: Potential Therapist: Angely Tavarez Phone Number of Aftercare Appointment: [phone] Time of Aftercare Appointment: A message was left to begin the referral, please follow up Aftercare Appointment Comment: Recommended through [facility] Contact Information Discharge Phone Number: [phone] Discharge [address]: [address] [place] [address],[place] [address] Discharge Plan Discharge Items Patient Disposition: Home - Self-Care Reason For Visit: MDD Discharge Diagnosis: major depressive disorder Activity: Resume your previous activity Non-emergency contact: Primary Care Provider, Psychiatrist and Therapist Call non-emergency contact if: you have any medication questions and your symptoms worsen Follow-up/Referrals: [facility] [Primary Care Provider] - Diet: Regular Addtl Attending Provider Instructions: SPECIAL CARE INSTRUCTIONS: 1. Follow through with your scheduled aftercare appointments. If unable to keep an appointment, please call to reschedule. 2. Take your medication only as prescribed. Medication should not be changed or stopped without the approval of your doctor. In the event of worsening symptoms or concerns about side effects, contact your doctor immediately. 3. Utilize new healthy coping skills, anger management skills, and stress management skills learned during your hospitalization. Journal feelings and process them with a support person. Identify stressors or situations that may result in relapse, deterioration or inappropriate behaviors and develop a plan to deal with those issues. 4. If your coping skills are ineffective and you are in crisis, contact your outpatient providers for direction. If unable to reach your providers, please call the [facility] CRISIS LINE AT , go to the [facility] walk-in center at [address], [address], [place], or go to the closest Emergency Room. 5. Avoid alcohol and un-prescribed drugs. 6. You have been provided with the Mental Health Advance Directives Pamphlet for your review. 7. Your condition is stable for discharge to outpatient level of care, but recovery is an ongoing process. Ifthoughts to harm yourself or others return, follow the safety plan developed during your stay. Planning for a safe return home includes securing weapons. Our treatment team recommends weaponsbe removed from the home until your outpatient provider reassesses your progress. In rare cases where the items themselvescannot be removed, guns and ammunitionshould be secured separatelyand keys stored by a reliable personoutside of the home. If you were admitted on an involuntary commitment, the police or other legal authorities may be involved in this process. AFTERCARE APPOINTMENTS: * Please call your insurance company prior to your scheduled appointment to confirm your aftercare providers are covered. Take your insurance information to your appointments. WHO TO CALL AND WHEN: Medical Emergencies: For questions or emergencies related to your hospital stay, please contact the Inpatient Behavioral Health Unit at [phone]. A licensed clinician is on-call 09/06 for the Behavioral Health Unit for emergencies At any time you feel your situation is an emergency, you may also call 911 immediately. Pending Studies at Discharge: No Stand-Alone Forms: My [facility] [employer], Smoking Cessation Medications and DC Order Prescriptions: New fluoxetine 10 mg Capsule 10 mg PO QAM 30 Days Qty: 30 RF: 0 Continued finasteride 1 mg tablet 1 mg PO DAILY RF: 0 Discontinued escitalopram oxalate 10 mg tablet 10 mg PO DAILY RF: 0 Discharge Orders: Discharge Order (Routine); Ordered 10/24/21 Ordered By: Tatiana Reddy Admission Data Admit Date/Time: 10/20/21 17:33 Attending Provider: Tatiana Reddy Admit Provider: Tatiana Reddy Primary Care Provider: [facility] Other Interventions: Discharge Summary Assessment (RN) Last Done: 10/24/21 10:05 Coding Level of Care Code 86619 D/C day mgmt > 30 min Diagnoses Major depressive disorder with single episode F32.9 Generalized anxiety disorder F41.1
== END 2021-10-24 11:30 | disposition home or self-care (01) | DRG 881 ==
LOC: ED 04:01 → 3S 17:33